=== PATIENT | female | born 2000 | race American Indian/Alaskan Native ===

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

== ENCOUNTER 2022-04-30 03:29 | Emergency (ER) | payer OTHER ==
[2022-04-30 04:31] LABS: Basophils # (Auto) 0.1 K/mm3 (0.0-0.1); Basophils % (Auto) 0.7 % (0.0-1.8); Eosinophils # (Auto) 0.1 K/mm3 (0.0-0.4); Lymphocytes # (Auto) 2.3 K/mm3 (1.2-5.4); Lymphocytes % (Auto) 20.1 % (13.4-35.0); Mean Corpuscular HGB Conc 32 % (30-34); Mean Corpuscular Volume 75 fl (79-97); Monocytes # (Auto) 0.8 K/mm3 (0.0-0.8); Platelet Count 405 K/mm3 (140-440); Red Blood Count 4.51 M/mm3 (3.65-5.03); Red Cell Distribution Width 15.8 % (13.2-15.2)
--- NOTE | 2022-04-30 09:38 | Ultrasound Report ---
FIRSTTRIMESTER OBSTETRIC ULTRASOUND ULTRASOUND OB TRANSVAGINAL HISTORY: Vaginal bleeding during COMPARISON: None. TECHNIQUE: Routine transabdominal and transvaginal OB ultrasound performed. FINDINGS: Uterus: Mildly enlarged measuring 10 x 6 x 7 cm. Gestational Sac: Well-defined oval shape and intrauterine in location. Yolk Sac: Normal in appearance. Fetus/Embryo: [place]-rump length of 0.93 cm, corresponding to an estimated gestational age of 7 weeks 0 day. Embryonic/ anatomy is too small for evaluation. Embryonic/ cardiac activity: 150bpm Placenta: Too small for evaluation. Amniotic fluid volume: Subjectively appropriate for gestational age. Ovaries: The right ovary is normal in size and appearance with normal blood flow, measuring 2.3 x 1. 7 x 1.6 cm. The left ovary is normal in size and appearance with normal blood flow, measuring 2.4 x 2.3 x 1.9 cm. Additional findings: A moderate to large subchorionic hemorrhage is identified along the anterior ges tational sac measuring up to 2.7 x 0.9 cm IMPRESSION Early live intrauterine . Moderate to large subchorionic hemorrhage. Signer Name: Tra Moragn Jr, MD Signed: 04/30/2022 9:34 AM Workstation Name: [id number]
[2022-04-30 09:41] LABS: Mucus,Urine 1+ /HPF
--- NOTE | 2022-04-30 10:19 | Emergency Department Report ---
ED Female HPI - General Chief complaint: Vaginal Bleeding Stated complaint: BLEEDING Time Seen by Provider: 04/30/22 08:00 Source: patient Mode of arrival: Ambulatory Limitations: No Limitations - Related Data Previous Rx's Medication Instructions Recorded Last Taken Type Amoxicillin [Trimox CAP] 500 mg PO BID #20 capsule 04/30/22 Unknown Rx Allergies Allergy/AdvReac Type Severity Reaction Status Date / Time tomato Allergy Itching Verified 08/21/19 00:09 ED Review of Systems ROS: Stated complaint: BLEEDING Other details as noted in HPI ED Past Medical Hx - Past Medical History Hx Seizures: Yes Additional medical history: anemia, MRSA - Social History Smoking Status: Never Smoker Substance Use Type: None - Medications Home Medications: Home Medications Medication Instructions Recorded Confirmed Last Taken Type Amoxicillin [Trimox CAP] 500 mg PO BID #20 capsule 04/30/22 Unknown Rx ED Physical Exam - General Limitations: No Limitations ED Course Vital Signs 04/30/22 03:34 Temperature 98.4 F Pulse Rate 105 H Respiratory 18 Rate Blood Pressure 136/77 O2 Sat by Pulse 96 Oximetry ED Medical Decision Making - Lab Data Result diagrams: 04/30/22 04:17 Critical care attestation.: If time is entered above; I have spent that time in minutes in the direct care of this critically ill patient, excluding procedure time. ED Disposition Clinical Impression: Vaginal bleeding during Disposition: 01 HOME / SELF CARE / HOMELESS Is pt being admited?: No Does the pt Need Aspirin: No Condition: Stable Instructions: Activity Restriction During Additional Instructions: tylenol only for pain antibiotic until gone follow up with obgyn in 48 hours for recheck referral below pelvic rest diet and activity as tolerated Referrals: PAU ROJAS MD [Staff Physician] - 3-5 Days Forms: Work/School Release Form(ED) Time of Disposition: 11:12
[2022-04-30 10:21] LABS: Bilirubin,Urine Negative (Negative); Color,Urine Yellow (Yellow)
[2022-04-30 10:22] LABS: Blood,Urine Large (Negative); PH,Urine 6.5 (5.0-7.0); Protein,Urine <30 mg dL mg/dL (Negative); Urobilinogen,Urine < 2.0 mg/dL (<2.0)
[2022-04-30] MEDS ORDERED: ACETAMINOPHEN 500 MG TAB PO ONE (11:11)
[2022-04-30] MEDS ORDERED: LIDOCAINE-MPF (1%) 10 MG/1 ML VIAL 5 ML INFILTRATI ONE (11:11)
[2022-04-30 12:18] VITALS: BP 128/86
== END 2022-04-30 12:25 | disposition home or self-care (01) ==
LOC: ED 03:29
DX: O20.9 Hemorrhage in early pregnancy, unspecified (principal); Z3A.01 Less than 8 weeks gestation of pregnancy; Z91.018 Allergy to other foods
CPT/HCPCS: 36415; 76801; 76817; 81001; 84702; 84703; 85025; 86900; 86901; 96372; 99284; J0696; J3490